=== PATIENT | female | born 1970 | race Caucasian/White ===

== ENCOUNTER 2018-09-15 21:51 | Emergency (ER) | payer MEDICARE, OTHER ==
[~2018-09-15] VITALS: Ht 170.2 cm; Wt 58.1 kg
[2018-09-15 22:38] LABS: BASOPHILS ABSOLUTE AUTO 0.07 K/mm3 (0.00-0.23); BASOPHILS PERCENT AUTO 1 % (0-2); EOSINOPHILS ABSOLUTE AUTO 0.23 K/mm3 (0.00-0.68); EOSINOPHILS PERCENT AUTO 2 % (0-6); Hematocrit 40.1 % (33.0-51.0); Hemoglobin 12.9 g/dL (11.5-16.0); IMMATURE GRAN ABSOLUTE AUTO 0.02 K/mm3 (0.00-0.10); IMMATURE GRAN PERCENT AUTO 0 % (0-1); LYMPHOCYTES ABSOLUTE AUTO 3.62 K/mm3 (0.84-5.20); LYMPHOCYTES PERCENT AUTO 30 % (21-46); MONOCYTES ABSOLUTE AUTO 0.62 K/mm3 (0.16-1.47); MONOCYTES PERCENT AUTO 5 % (4-13); Mean Corpuscular HGB 30.3 pg (26.0-34.0); Mean Corpuscular HGB Conc 32.2 g/dL (31.5-36.5); Mean Corpuscular Volume 94 fL (80-100); Mean Platelet Volume 10.2 fL (9.1-12.4); NEUTROPHILS PERCENT AUTO 62 % (41-73); Platelet Count 310 K/mm3 (150-400); RDW Coefficient Variation 12.4 % (11.7-14.2); RDW Standard Deviation 42.9 fL (35.1-46.3); Red Blood Cell Count 4.26 M/mm3 (3.80-5.20); White Blood Cell Count 12.06 K/mm3 (4.00-11.30)
[2018-09-15 22:44] LABS: Alanine Aminotransfer (ALT/SGP 17 U/L (12-78); Albumin, Blood 3.5 g/dL (3.4-5.0); Albumin/Globulin Ratio 1.2 (0.8-1.8); Alk Phos 98 U/L (50-136); Anion Gap 7 mmol/L (6-16); Aspartate Aminotrans (AST/SGOT 10 U/L (12-37); Bilirubin, Total 0.2 mg/dL (0.1-1.0); Blood Urea Nitrogen 8 mg/dL (8-24); Bun/Creatinine Ratio 9.4 (12.0-20.0); CO2, Blood 31 mmol/L (21-32); Calcium, Blood 9.2 mg/dL (8.5-10.1); Chloride, Blood 107 mmol/L (98-108); Creatinine, Blood 0.86 mg/dL (0.40-1.00); Glomerular Filtration Rate >60 (60-); Glucose, Blood 76 mg/dL (70-99); Potassium, Blood 4.7 mmol/L (3.5-5.5); Sodium, Blood 145 mmol/L (136-145); Total Protein, Blood 6.5 g/dL (6.4-8.2)
[2018-09-15 23:19] LABS: Source, Urine Clean Catch
[2018-09-15 23:30] LABS: Bilirubin, Urine Neg (Neg); Blood, Urine Neg (Neg); Glucose Qualitative, Urine Neg (Neg); Ketones, Urine Neg (Neg); Leukocyte Esterase, Urine 1+ (Neg); Nitrite, Urine Neg (Neg); Protein, Urine Neg (Neg); Urobilinogen, Urine NORM (Normal)
[2018-09-15 23:34] LABS: Appearance, Urine Clear (Clear); Color, Urine Yellow (P-Yellow)
[2018-09-15 23:46] LABS: Bacteria Mod /hpf; Red Blood Cells, Urine 0-2 /hpf (0-2); Squamous Epithelial Cells Mod /hpf (Few)
[2018-09-16] MEDS ORDERED: ZOFRAN (00:04)
[2018-09-16] MEDS ORDERED: IBUP800 (00:05)
[2018-09-16] MEDS ORDERED: NEURONTIN (00:05)
[2018-09-16] MEDS ORDERED: XANAX (00:05)
== END 2018-09-16 02:12 | disposition home or self-care (01) ==
LOC: ER 21:51
PROVIDERS: Emergency Medicine
DX: K59.00 Constipation, unspecified (principal); Z79.899 Other long term (current) drug therapy; F17.210 Nicotine dependence, cigarettes, uncomplicated
CPT/HCPCS: 36415; 74176; 80053; 81001; 83690; 85025; 87086; 96374; 96375; 99284-25; A9270-GY; J1885; J2405; J3010

== ENCOUNTER 2020-05-19 15:31 | Emergency (ER) | payer MEDICARE ==
[~2020-05-19] VITALS: Ht 162.6 cm; Wt 54.4 kg
[~2020-05-19 15:31] MED LIST: IBUP800 PO; NEURONTIN; XANAX; ZOFRAN
[2020-05-19 16:01] LABS: Source, Urine Catheter
[2020-05-19 16:06] LABS: BASOPHILS PERCENT AUTO 1 % (0-2); EOSINOPHILS ABSOLUTE AUTO 0.13 K/mm3 (0.00-0.68); EOSINOPHILS PERCENT AUTO 1 % (0-6); Hemoglobin 14.7 g/dL (11.5-16.0); IMMATURE GRAN ABSOLUTE AUTO 0.13 K/mm3 (0.00-0.10); IMMATURE GRAN PERCENT AUTO 1 % (0-1); LYMPHOCYTES ABSOLUTE AUTO 2.42 K/mm3 (0.84-5.20); LYMPHOCYTES PERCENT AUTO 13 % (21-46); MONOCYTES ABSOLUTE AUTO 0.95 K/mm3 (0.16-1.47); MONOCYTES PERCENT AUTO 5 % (4-13); Mean Corpuscular HGB 29.4 pg (26.0-34.0); Mean Corpuscular HGB Conc 33.4 g/dL (31.5-36.5); Mean Corpuscular Volume 88 fL (80-100); Mean Platelet Volume 9.8 fL (9.1-12.4); NEUTROPHILS ABSOLUTE AUTO 14.36 K/mm3 (1.96-9.15); NEUTROPHILS PERCENT AUTO 79 % (41-73); Platelet Count 287 K/mm3 (150-400); RDW Coefficient Variation 12.2 % (11.7-14.2); RDW Standard Deviation 39.3 fL (35.1-46.3); White Blood Cell Count 18.09 K/mm3 (4.00-11.30)
[2020-05-19 16:06] LABS: Appearance, Urine Clear (Clear); Bilirubin, Urine Neg (Neg); Blood, Urine Neg (Neg); Color, Urine Amber (P-Yellow); Glucose Qualitative, Urine Neg (Neg); Ketones, Urine 2+ (Neg); Leukocyte Esterase, Urine 1+ (Neg); Nitrite, Urine Neg (Neg); Protein, Urine 1+ (Neg); Urobilinogen, Urine NORM (Normal)
[2020-05-19 16:17] LABS: Bacteria Rare /hpf; Red Blood Cells, Urine Rare /hpf (0-2); Squamous Epithelial Cells Not Seen /hpf (Few); White Blood Cells, Urine 0-2 /hpf (0-5)
[2020-05-19] MEDS ORDERED: GABA800 PO (16:17)
[2020-05-19] MEDS ORDERED: ALPRAZOLAM1 M1 PO (16:19)
[2020-05-19 16:23] LABS: Ethanol (Alcohol), Blood, Med <3 mg/dL; Salicylate 2.9 mg/dL (2.8-20.0)
[2020-05-19 16:27] LABS: U Amphetamine Screen Not Detected; U Barbituate Screen Not Detected; U Benzodiazapine Screen DETECTED; U Buprenorphine Screen Not Detected; U Cannabinoids Screen DETECTED; U Cocaine Screen Not Detected; U Methadone Screen Not Detected; U Methamphetamine Screen Not Detected; U Opiates Screen Not Detected; U Oxycodone Screen DETECTED; U Phencyclidine Screen Not Detected; U Propoxyphene Screen Not Detected
[2020-05-19] MEDS ORDERED: OXYC80ER PO (16:28)
[2020-05-19 16:29] LABS: Alanine Aminotransfer (ALT/SGP 18 U/L (12-78); Albumin, Blood 4.3 g/dL (3.4-5.0); Albumin/Globulin Ratio 1.3 (0.8-1.8); Alk Phos 101 U/L (50-136); Anion Gap 9 mmol/L (6-16); Aspartate Aminotrans (AST/SGOT 13 U/L (12-37); Bilirubin, Total 0.3 mg/dL (0.1-1.0); Blood Urea Nitrogen 8 mg/dL (8-24); Bun/Creatinine Ratio 10.9 (12.0-20.0); CO2, Blood 25 mmol/L (21-32); Calcium, Blood 9.8 mg/dL (8.5-10.1); Chloride, Blood 103 mmol/L (98-108); Creatinine, Blood 0.73 mg/dL (0.40-1.00); Globulin, Blood 3.4 g/dL (2.2-4.0); Glomerular Filtration Rate >60 (60-); Glucose, Blood 146 mg/dL (70-99); Potassium, Blood 3.4 mmol/L (3.5-5.5); Sodium, Blood 137 mmol/L (136-145); Total Protein, Blood 7.7 g/dL (6.4-8.2)
[2020-05-19] MEDS ORDERED: OXYC30ER PO (16:30)
[2020-05-19 16:31] LABS: Acetaminophen, Random <2.0 ug/mL (10.0-30.0)
== END 2020-05-19 19:20 | disposition home or self-care (01) ==
LOC: ER 15:31
PROVIDERS: Physician Assistant
DX: R41.82 Altered mental status, unspecified (principal); R11.2 Nausea with vomiting, unspecified; R00.1 Bradycardia, unspecified; F17.210 Nicotine dependence, cigarettes, uncomplicated; Z79.899 Other long term (current) drug therapy; Z79.52 Long term (current) use of systemic steroids
CPT/HCPCS: 36415; 70450; 71045; 80053; 81001; 82947; 85025; 87086; 93005; 93010; 96361-59; 96374-59; 96375-59; 99285-25; G0480; J2310; J2405; J7120; P9612

== ENCOUNTER 2020-06-28 17:08 | Emergency (ER) | payer MEDICARE ==
[~2020-06-28] VITALS: Ht 170.2 cm; Wt 53.1 kg
[~2020-06-28 17:08] MED LIST changes: +ALPRAZOLAM1 M1 PO; +GABA800 PO; +OXYC30ER PO; +OXYC80ER PO
[2020-06-28 17:50] LABS: BASOPHILS ABSOLUTE AUTO 0.08 K/mm3 (0.00-0.23); BASOPHILS PERCENT AUTO 1 % (0-2); EOSINOPHILS ABSOLUTE AUTO 0.18 K/mm3 (0.00-0.68); EOSINOPHILS PERCENT AUTO 2 % (0-6); Hematocrit 46.2 % (33.0-51.0); IMMATURE GRAN ABSOLUTE AUTO 0.02 K/mm3 (0.00-0.10); IMMATURE GRAN PERCENT AUTO 0 % (0-1); LYMPHOCYTES ABSOLUTE AUTO 3.33 K/mm3 (0.84-5.20); LYMPHOCYTES PERCENT AUTO 40 % (21-46); MONOCYTES ABSOLUTE AUTO 0.62 K/mm3 (0.16-1.47); MONOCYTES PERCENT AUTO 7 % (4-13); Mean Corpuscular HGB 29.4 pg (26.0-34.0); Mean Corpuscular HGB Conc 32.5 g/dL (31.5-36.5); Mean Corpuscular Volume 91 fL (80-100); Mean Platelet Volume 9.6 fL (9.1-12.4); NEUTROPHILS ABSOLUTE AUTO 4.12 K/mm3 (1.96-9.15); NEUTROPHILS PERCENT AUTO 49 % (41-73); Platelet Count 322 K/mm3 (150-400); RDW Coefficient Variation 12.3 % (11.7-14.2); RDW Standard Deviation 41.2 fL (35.1-46.3); White Blood Cell Count 8.35 K/mm3 (4.00-11.30)
[2020-06-28 18:09] LABS: Alanine Aminotransfer (ALT/SGP 20 U/L (12-78); Albumin, Blood 4.5 g/dL (3.4-5.0); Albumin/Globulin Ratio 1.2 (0.8-1.8); Alk Phos 111 U/L (50-136); Anion Gap 6 mmol/L (6-16); Aspartate Aminotrans (AST/SGOT 17 U/L (12-37); Bilirubin, Total 0.3 mg/dL (0.1-1.0); Blood Urea Nitrogen 9 mg/dL (8-24); Bun/Creatinine Ratio 10.8 (12.0-20.0); CO2, Blood 27 mmol/L (21-32); Calcium, Blood 9.6 mg/dL (8.5-10.1); Chloride, Blood 105 mmol/L (98-108); Creatinine, Blood 0.83 mg/dL (0.40-1.00); Globulin, Blood 3.6 g/dL (2.2-4.0); Glomerular Filtration Rate >60 (60-); Glucose, Blood 105 mg/dL (70-99); Potassium, Blood 3.8 mmol/L (3.5-5.5); Sodium, Blood 138 mmol/L (136-145); Total Protein, Blood 8.1 g/dL (6.4-8.2)
[2020-06-28 18:48] LABS: Source, Urine Voided
[2020-06-28 18:51] LABS: Appearance, Urine Clear (Clear); Bilirubin, Urine Neg (Neg); Blood, Urine Neg (Neg); Color, Urine Yellow (P-Yellow); Glucose Qualitative, Urine Neg (Neg); Ketones, Urine Neg (Neg); Leukocyte Esterase, Urine Neg (Neg); Nitrite, Urine Neg (Neg); Protein, Urine Neg (Neg); Specific Gravity, Urine 1.005 (1.003-1.022); Urobilinogen, Urine NORM (Normal)
[2020-06-28] MEDS ORDERED: FLUTICASONE PRO16 GM (20:23)
[2020-06-28] MEDS ORDERED: ESTRADIOL1 M1 PO (20:23)
[2020-06-28] MEDS ORDERED: COMBIVENT RESPIM4 G1 INH (20:23)
[2020-06-28] MEDS ORDERED: BUPROPION HCL200 M1 PO (20:23)
== END 2020-06-28 20:54 | disposition home or self-care (01) ==
LOC: ER 17:08
PROVIDERS: Emergency Medicine; Physician Assistant
DX: R10.9 Unspecified abdominal pain (principal); R11.2 Nausea with vomiting, unspecified; E78.00 Pure hypercholesterolemia, unspecified; F17.210 Nicotine dependence, cigarettes, uncomplicated; Z88.5 Allergy status to narcotic agent; Z79.899 Other long term (current) drug therapy; Z87.19 Personal history of other diseases of the digestive system
CPT/HCPCS: 74176; 80053; 81003; 83690; 85025; 93005; 93010; 96374; 96375; 99284-25; J1170; J1885; J2405

== ENCOUNTER 2020-07-01 15:07 | Emergency (ER) | payer MEDICARE ==
[~2020-07-01] VITALS: Ht 167.6 cm; Wt 53.5 kg
[~2020-07-01 15:07] MED LIST changes: +BUPROPION HCL200 M1 PO; +COMBIVENT RESPIM4 G1 INH; +ESTRADIOL1 M1 PO; +FLUTICASONE PRO16 GM
[2020-07-01 16:02] LABS: BASOPHILS ABSOLUTE AUTO 0.08 K/mm3 (0.00-0.23); BASOPHILS PERCENT AUTO 1 % (0-2); EOSINOPHILS ABSOLUTE AUTO 0.09 K/mm3 (0.00-0.68); EOSINOPHILS PERCENT AUTO 1 % (0-6); Hematocrit 41.7 % (33.0-51.0); Hemoglobin 13.8 g/dL (11.5-16.0); IMMATURE GRAN ABSOLUTE AUTO 0.06 K/mm3 (0.00-0.10); IMMATURE GRAN PERCENT AUTO 1 % (0-1); LYMPHOCYTES ABSOLUTE AUTO 1.67 K/mm3 (0.84-5.20); LYMPHOCYTES PERCENT AUTO 14 % (21-46); MONOCYTES ABSOLUTE AUTO 0.46 K/mm3 (0.16-1.47); MONOCYTES PERCENT AUTO 4 % (4-13); Mean Corpuscular HGB 30.1 pg (26.0-34.0); Mean Corpuscular HGB Conc 33.1 g/dL (31.5-36.5); Mean Corpuscular Volume 91 fL (80-100); Mean Platelet Volume 9.7 fL (9.1-12.4); NEUTROPHILS ABSOLUTE AUTO 9.61 K/mm3 (1.96-9.15); NEUTROPHILS PERCENT AUTO 80 % (41-73); NRBC ABSOLUTE 0.02 K/mm3 (0.00-0.02); NRBC Auto 0.2 /100 WBC (0.0-0.2); Platelet Count 288 K/mm3 (150-400); RDW Coefficient Variation 12.4 % (11.7-14.2); RDW Standard Deviation 41.2 fL (35.1-46.3); Red Blood Cell Count 4.58 M/mm3 (3.80-5.20); White Blood Cell Count 11.97 K/mm3 (4.00-11.30)
[2020-07-01 16:41] LABS: Alanine Aminotransfer (ALT/SGP 36 U/L (12-78); Albumin/Globulin Ratio 1.1 (0.8-1.8); Alk Phos 109 U/L (50-136); Anion Gap 5 mmol/L (6-16); Aspartate Aminotrans (AST/SGOT 33 U/L (12-37); Bilirubin, Total 1.4 mg/dL (0.1-1.0); Blood Urea Nitrogen 9 mg/dL (8-24); CO2, Blood 28 mmol/L (21-32); Calcium, Blood 9.1 mg/dL (8.5-10.1); Chloride, Blood 103 mmol/L (98-108); Creatinine, Blood 0.75 mg/dL (0.40-1.00); Ethanol (Alcohol), Blood, Med <3 mg/dL; Globulin, Blood 3.7 g/dL (2.2-4.0); Glomerular Filtration Rate >60 (60-); Glucose, Blood 131 mg/dL (70-99); Potassium, Blood 4.8 mmol/L (3.5-5.5); Sodium, Blood 136 mmol/L (136-145); Total Protein, Blood 7.7 g/dL (6.4-8.2); Troponin I <0.015 ng/mL (0.000-0.040)
[2020-07-01 18:37] LABS: Source, Urine Clean Catch
[2020-07-01 18:47] LABS: Appearance, Urine Clear (Clear); Bilirubin, Urine Neg (Neg); Blood, Urine Neg (Neg); Color, Urine Yellow (P-Yellow); Glucose Qualitative, Urine Neg (Neg); Ketones, Urine 1+ (Neg); Leukocyte Esterase, Urine 1+ (Neg); Nitrite, Urine Neg (Neg); Protein, Urine Neg (Neg); Specific Gravity, Urine 1.015 (1.003-1.022); Urobilinogen, Urine NORM (Normal)
[2020-07-01 19:01] LABS: Bacteria Few /hpf; Red Blood Cells, Urine Rare /hpf (0-2); Squamous Epithelial Cells Mod /hpf (Few); White Blood Cells, Urine 0-2 /hpf (0-5)
[2020-07-01 19:04] LABS: U Amphetamine Screen Not Detected; U Barbituate Screen Not Detected; U Benzodiazapine Screen DETECTED; U Buprenorphine Screen Not Detected; U Cannabinoids Screen DETECTED; U Cocaine Screen Not Detected; U Methadone Screen Not Detected; U Methamphetamine Screen Not Detected; U Opiates Screen Not Detected; U Oxycodone Screen DETECTED; U Phencyclidine Screen Not Detected; U Propoxyphene Screen Not Detected
[2020-07-01] MEDS ORDERED: ONDA4ODT SL (20:57)
== END 2020-07-01 22:15 | disposition home or self-care (01) ==
LOC: ER 15:07
PROVIDERS: Physician Assistant
DX: R11.2 Nausea with vomiting, unspecified (principal); R10.9 Unspecified abdominal pain; R55 Syncope and collapse; F17.210 Nicotine dependence, cigarettes, uncomplicated; Z88.5 Allergy status to narcotic agent; Z79.899 Other long term (current) drug therapy
CPT/HCPCS: 36415; 76705; 80053; 81001; 82140; 83690; 84484; 85025; 87086; 93005; 93010; 99284-25; G0480

== ENCOUNTER → 2021-02-05 | Outpatient (CLI) | payer MEDICARE ==
[~2021-02-05] MED LIST changes: +ONDA4ODT SL
== END | disposition home or self-care (01) ==
LOC: LAB SHORT 07:57
DX: L57.0 Actinic keratosis (principal)
CPT/HCPCS: 88305

== ENCOUNTER 2021-09-18 21:31 | Emergency (ER) | payer MEDICARE, OTHER ==
[~2021-09-18] VITALS: Ht 170.2 cm; Wt 56.7 kg
== END 2021-09-19 02:17 | disposition home or self-care (01) ==
LOC: ER 21:31
DX: M79.89 Other specified soft tissue disorders (principal); F17.210 Nicotine dependence, cigarettes, uncomplicated; E78.00 Pure hypercholesterolemia, unspecified; Z79.899 Other long term (current) drug therapy
CPT/HCPCS: 93971; 99283-25

== ENCOUNTER 2022-12-25 11:39 | Day surgery (SDC) | payer OTHER ==
[~2022-12-25] VITALS: Ht 170.2 cm; Wt 60.8 kg
[2022-12-25] MEDS ORDERED: FLUT1DIS5 INH (12:48)
[2022-12-25] MEDS ORDERED: STIOLTO RESPIMAT4 G1 IH (12:48)
[2022-12-25 14:20] VITALS: BP 95/58
--- NOTE | 2022-12-25 14:27 | NUR ---
12/25/22 1427 Karen Martin LATE ENTRY FOR CHARTING FOR CAREPLAN AND ASSESSMENT. ASSESSMENT WAS PREFORMED IN PRE-OP BEFORE PROCEDURE.
== END 2022-12-25 14:21 | disposition home or self-care (01) ==
LOC: ORSCSDS 11:39
PROVIDERS: Internal Medicine Gastroenterology
PROC: 0DBK8ZX Excision of Ascending Colon, Via Natural or Artificial Opening Endoscopic, Diagnostic (ICD-10-PCS; principal; 2022-12-25 11:30)
PROC: 0DB68ZX Excision of Stomach, Via Natural or Artificial Opening Endoscopic, Diagnostic (ICD-10-PCS; principal; 2022-12-25 11:30)
DX: R10.13 Epigastric pain (principal); Z12.11 Encounter for screening for malignant neoplasm of colon; Z80.0 Family history of malignant neoplasm of digestive organs; D12.2 Benign neoplasm of ascending colon; K57.30 Diverticulosis of large intestine without perforation or abscess without bleeding; Z99.81 Dependence on supplemental oxygen; K31.9 Disease of stomach and duodenum, unspecified; F41.9 Anxiety disorder, unspecified; R06.02 Shortness of breath; J44.9 Chronic obstructive pulmonary disease, unspecified; E78.5 Hyperlipidemia, unspecified; F32.A Depression, unspecified; Z86.010 Personal history of colon polyps; F17.210 Nicotine dependence, cigarettes, uncomplicated; Z79.899 Other long term (current) drug therapy
CPT/HCPCS: 88305; 88342; J2704; J7120

== ENCOUNTER 2023-03-03 17:16 | Inpatient (IN) | payer OTHER ==
[~2023-03-03] VITALS: Ht 170.2 cm; Wt 60.2 kg
[~2023-03-03 17:16] MED LIST changes: -ALBU90OI INH; -BUPR100ER PO; -HYDRA25 PO; -ONDA4 PO; -OXYC5 PO; -Ondansetron Odt8 MG MM; -ZANAFLEX413 PO
[2023-03-03 20:39] LABS: Influenza A, PCR NEGATIVE (NEGATIVE); Influenza B, PCR NEGATIVE (NEGATIVE); Resp Syncytial Virus, PCR NEGATIVE (NEGATIVE); SARS-Cov-2 (COVID-19) PCR, MMC NEGATIVE (NEGATIVE)
[2023-03-04] MEDS ORDERED: ZANAFLEX413 PO (00:28)
[2023-03-04] MEDS ORDERED: BUPR100ER PO (00:28)
[2023-03-04 01:18] VITALS: BP 108/72
[2023-03-04] MEDS ORDERED: ONDA4 PO (01:19)
--- NOTE | 2023-03-04 02:40 | NUR ---
ADMIT ADMIT AT APPROX 0115 FOR RESPIRATORY FAILURE R/T BILAT PNEUMONIA. PT A+O X4 AND INDEP. ON 4L VIA NC SATTING AT 95%. PT IS SOB WITH EXERTION AND DOES SPEAK IN BROKEN SENTENCES AND BECOMES TACHYPNIC. LUNG SOUNDS ARE COARSE T/O. PT REPORTS A NONPRODUCTIVE COUGH. RT FOR NEB TXS PRN. VSS. ORIENTED TO ROOM AND CALL LIGHT.
--- NOTE | 2023-03-04 05:52 | NUR ---
PT REPORTED SOB. PT 89% ON 4L O2 VIA NC. THIS RN INCREASED TO 5L AND CALLED RT FOR BREATHING TX. RT INCREASED PT TO 6L VIA NC. CONT TO MONITOR O2 SATS. BREATHING TX IN PROGRESS.
[2023-03-04 08:42] VITALS: BP 106/67
[2023-03-04 10:08] LABS: Magnesium, Blood 2.6 mg/dL (1.6-2.4); Phosphorus, Blood 3.5 mg/dL (2.5-4.9)
[2023-03-04] MEDS ORDERED: OXYC80ER PO (10:39)
[2023-03-04] MEDS ORDERED: OXYC5 PO (10:40)
[2023-03-04] MEDS ORDERED: ALBU90OI INH (10:51)
[2023-03-04] MEDS ORDERED: Ondansetron Odt8 MG MM (10:56)
[2023-03-04 15:44] VITALS: BP 112/67
[2023-03-04] MEDS ORDERED: HYDRA25 PO (17:33)
--- NOTE | 2023-03-04 19:51 | NUR ---
SHIFT SUMMARY PT INDEPENDENT IN ROOM. SOB WITH ANY ACTIVITY. REPORTED SHE TOOK PAIN MEDS REGULARLY AT HOME THIS MORNING AND VERIFIED WITH PHARMACY MED REC. RECEIVED ORDERS FOR HOME PAIN MED REGIMAN TO CONTINUE. TOOK A SHOWER AFTER LUNCH AND TOLERATED WELL. REPORTED COUGH BEGINNING TO CAUSE THROAT TO BECOM RAW AND IRRITATED AND ASKING FOR NUMBING TREATMENT. FAMILIAR WITH HOSPITAL ROUTINE. END OF SHIFT O2 AT 5L/M.
[2023-03-04 20:12] VITALS: BP 107/58
[2023-03-05 03:45] LABS: Adenovirus Not Detected (NOT DETECT); Bordetella pertussis Not Detected (NOT DETECT); Chlamydophila pneumoniae Not Detected (NOT DETECT); Coronavirus 229E Not Detected (NOT DETECT); Coronavirus HKU1 Not Detected (NOT DETECT); Coronavirus NL63 Not Detected (NOT DETECT); Coronavirus OC43 Not Detected (NOT DETECT); Human Metapneumovirus Not Detected (NOT DETECT); Human Rhinovirus/Enterovirus Detected (NOT DETECT); Influenza A/2009-H1 Not Detected (NOT DETECT); Influenza A/H1 Not Detected (NOT DETECT); Influenza A/H3 Not Detected (NOT DETECT); Influenza B Not Detected (NOT DETECT); Mycoplasma pneumoniae Not Detected (NOT DETECT); Parainfluenza Virus 1 Not Detected (NOT DETECT); Parainfluenza Virus 2 Not Detected (NOT DETECT); Parainfluenza Virus 3 Not Detected (NOT DETECT); Parainfluenza Virus 4 Not Detected (NOT DETECT); Respiratory Syncytial Virus Not Detected (NOT DETECT); SARS-Cov-2 (COVID-19), BioFire Not Detected (NOT DETECT)
--- NOTE | 2023-03-05 04:22 | NUR ---
SHIFT SUMMARY 52 YR F ADMITTED ON 03/03/23 FOR ACUTE ON CHRONIC RESPIRATORY FAILURE WITH HYPOXIA. DNR. NO ACUTE CHANGES THIS SHIFT. PT C/O WIDE SPREAD PAIN AND IS BEING GIVEN PAIN MEDS PER EMAR. RESPIRATORY PANEL DONE AND PT IS POSITIVE FOR RHINOVIRUS SO SHE WILL BE PUT IN DROPLET PRECAUTIONS. SHE HAS BEEN UP IN HER CHAIR WATCHING TV FOR MOST OF THIS SHIFT. CLOROSEPTIC NUMBING THROAT SPRAY WAS ORDERED AND IS HELPFUL IN MANAGING THROAT PAIN. PT IS PLEASANT AND COOPERATIVE WITH CARE.
[2023-03-05 04:56] VITALS: BP 110/77
[2023-03-05 07:27] VITALS: BP 131/83
[2023-03-05 07:33] LABS: BASOPHILS ABSOLUTE AUTO 0.02 K/mm3 (0.00-0.23); BASOPHILS PERCENT AUTO 0 % (0-2); EOSINOPHILS PERCENT AUTO 0 % (0-6); Hematocrit 34.6 % (33.0-51.0); Hemoglobin 11.3 g/dL (11.5-16.0); IMMATURE GRAN ABSOLUTE AUTO 0.07 K/mm3 (0.00-0.10); IMMATURE GRAN PERCENT AUTO 0 % (0-1); LYMPHOCYTES ABSOLUTE AUTO 1.37 K/mm3 (0.84-5.20); LYMPHOCYTES PERCENT AUTO 7 % (21-46); MONOCYTES ABSOLUTE AUTO 0.92 K/mm3 (0.16-1.47); MONOCYTES PERCENT AUTO 5 % (4-13); Mean Corpuscular HGB 29.6 pg (26.0-34.0); Mean Corpuscular HGB Conc 32.7 g/dL (31.5-36.5); Mean Corpuscular Volume 91 fL (80-100); Mean Platelet Volume 9.5 fL (9.1-12.4); NEUTROPHILS ABSOLUTE AUTO 16.52 K/mm3 (1.96-9.15); NEUTROPHILS PERCENT AUTO 87 % (41-73); Platelet Count 347 K/mm3 (150-400); RDW Coefficient Variation 12.4 % (11.7-14.2); RDW Standard Deviation 40.9 fL (35.1-46.3); Red Blood Cell Count 3.82 M/mm3 (3.80-5.20)
[2023-03-05 08:01] LABS: Albumin, Blood 2.8 g/dL (3.4-5.0); Albumin/Globulin Ratio 0.7 (0.8-1.8); Bilirubin, Total 0.2 mg/dL (0.1-1.0); Bun/Creatinine Ratio 19.7 (12.0-20.0); Calcium, Blood 8.9 mg/dL (8.5-10.1); Creatinine, Blood 0.66 mg/dL (0.40-1.00); Globulin, Blood 3.8 g/dL (2.2-4.0); Total Protein, Blood 6.6 g/dL (6.4-8.2)
[2023-03-05 15:56] VITALS: BP 135/80
--- NOTE | 2023-03-05 18:40 | NUR ---
SHIFT SUMMARY PT INDEPENDENT IN ROOM. SOB WITH ACTIVITY. O2 CONTINUES TO RANGE FROM 4-7 LITERS. STARTED TO FEEL DIZZY AND INCREASED SOB WITH FLOATERS IN HER EYES LATE THIS AFTERNOON. SELF RESOLVED BUT REPORTED FEELING NOT WELL FOR REMAINDER OF SHIFT. OBTAINED ORDER FOR TELE AND EKG.
[2023-03-05 20:21] VITALS: BP 132/72
[2023-03-06 04:01] VITALS: BP 154/86
--- NOTE | 2023-03-06 05:38 | NUR ---
SHIFT SUMMARY 52 YR F ADMITTED ON 03/03/23 FOR COPD/INTERSTITIAL LUNG DISEASE. FULL CODE. PT DID NOT FEEL WELL AT BEGINNING OF SHIFT AND WAS C/O HEADACHE. TYLENOL AND NORMAL PAIN MEDS GIVEN AND WITHIN AN HOUR OR TWO PT WAS FEELING MUCH BETTER. SHE DID NOT SLEEP MUCH OVERNIGHT BUT RATHER SAT UP IN HER CHAIR WATCHING HER IPAD. SHE STATED SHE WAS NOT HAPPY WITH THE BIOLOGICAL PHOTOGRAPHER THIS SHIFT AND ASKED TO SPEAK WITH A CHARGE NURSE ABOUT IT. PT HAD A CONVERSATION WITH THE CHARGE NURSE AND THIS NURSE WAS NOT IN THE ROOM WHEN IT TOOK PLACE.
[2023-03-06 06:54] LABS: BASOPHILS ABSOLUTE AUTO 0.02 K/mm3 (0.00-0.23); BASOPHILS PERCENT AUTO 0 % (0-2); EOSINOPHILS PERCENT AUTO 0 % (0-6); Hematocrit 35.6 % (33.0-51.0); Hemoglobin 11.5 g/dL (11.5-16.0); IMMATURE GRAN ABSOLUTE AUTO 0.14 K/mm3 (0.00-0.10); IMMATURE GRAN PERCENT AUTO 1 % (0-1); LYMPHOCYTES ABSOLUTE AUTO 1.06 K/mm3 (0.84-5.20); LYMPHOCYTES PERCENT AUTO 9 % (21-46); MONOCYTES ABSOLUTE AUTO 0.64 K/mm3 (0.16-1.47); MONOCYTES PERCENT AUTO 5 % (4-13); Mean Corpuscular HGB 29.4 pg (26.0-34.0); Mean Corpuscular HGB Conc 32.3 g/dL (31.5-36.5); Mean Corpuscular Volume 91 fL (80-100); Mean Platelet Volume 9.4 fL (9.1-12.4); NEUTROPHILS ABSOLUTE AUTO 10.54 K/mm3 (1.96-9.15); NEUTROPHILS PERCENT AUTO 85 % (41-73); Platelet Count 386 K/mm3 (150-400); RDW Coefficient Variation 12.5 % (11.7-14.2); RDW Standard Deviation 41.5 fL (35.1-46.3); Red Blood Cell Count 3.91 M/mm3 (3.80-5.20)
[2023-03-06 07:09] VITALS: BP 127/70
[2023-03-06 07:27] LABS: Bun/Creatinine Ratio 25.8 (12.0-20.0); Creatinine, Blood 0.81 mg/dL (0.40-1.00)
[2023-03-06 15:34] VITALS: BP 147/132
[2023-03-06 16:21] VITALS: BP 127/61
--- NOTE | 2023-03-06 19:27 | NUR ---
SHIFT SUMMARY PT INDEPENDENT IN ROOM. RESP STATUS MUCH IMPROVED FROM LAST COUPLE OF DAYS. TOLERATING O2 AT 2L/M BY NC AT THIS TIME. NO S/S OF RESP DISTRESS AT THAT RATE. SHOWER TAKEN. CONTINUES WITH COUGH.
[2023-03-06 19:39] VITALS: BP 122/74
[2023-03-07 03:20] VITALS: BP 166/93
--- NOTE | 2023-03-07 05:23 | NUR ---
SHIFT SUMMARY PATIENT A/OX4, SITTING UP IN CHAIR BESIDE BED WATCHING HER iPAD, APPEARS IN NO ACUTE DISTRESS, STATED PAIN LEVEL OF 10/10 TO; "EVERYWHERE, NECK, MY HIP, ITS EVERYWHERE." PAIN MANAGED PER EMAR. DENIES SOB/DIFFICULTY BREATHING. CONTINUES TO HAVE NON-PRODUCTIVE COUGH, PATIENT DECLINED TO GIVE SPUTUM SAMPLE. SpO2 IN MID TO UPPER 90s ON 2-3L O2. NO ACUTE CHANGES NOTED OVERNIGHT. BED LOCKED IN LOWEST POSITION, CALL LIGHT WITHIN REACH.
[2023-03-07 05:40] LABS: BASOPHILS ABSOLUTE AUTO 0.02 K/mm3 (0.00-0.23); BASOPHILS PERCENT AUTO 0 % (0-2); EOSINOPHILS ABSOLUTE AUTO 0.01 K/mm3 (0.00-0.68); EOSINOPHILS PERCENT AUTO 0 % (0-6); Hematocrit 37.4 % (33.0-51.0); IMMATURE GRAN ABSOLUTE AUTO 0.17 K/mm3 (0.00-0.10); IMMATURE GRAN PERCENT AUTO 1 % (0-1); LYMPHOCYTES ABSOLUTE AUTO 1.52 K/mm3 (0.84-5.20); LYMPHOCYTES PERCENT AUTO 11 % (21-46); MONOCYTES ABSOLUTE AUTO 0.57 K/mm3 (0.16-1.47); MONOCYTES PERCENT AUTO 4 % (4-13); Mean Corpuscular HGB 29.4 pg (26.0-34.0); Mean Corpuscular HGB Conc 32.1 g/dL (31.5-36.5); Mean Corpuscular Volume 92 fL (80-100); Mean Platelet Volume 9.6 fL (9.1-12.4); NEUTROPHILS ABSOLUTE AUTO 11.38 K/mm3 (1.96-9.15); NEUTROPHILS PERCENT AUTO 83 % (41-73); Platelet Count 421 K/mm3 (150-400); RDW Coefficient Variation 12.5 % (11.7-14.2); RDW Standard Deviation 41.6 fL (35.1-46.3); Red Blood Cell Count 4.08 M/mm3 (3.80-5.20); White Blood Cell Count 13.67 K/mm3 (4.00-11.30)
[2023-03-07 06:18] LABS: Bun/Creatinine Ratio 27.7 (12.0-20.0); Creatinine, Blood 0.72 mg/dL (0.40-1.00)
[2023-03-07 06:26] VITALS: BP 151/81
--- NOTE | 2023-03-07 07:55 | NUR ---
RECEIVED CALL FROM [facility] THAT PT'S HR WAS 38 AT 0727. PT CURRENTLY WORKING WITH RT, AWAKE, ALERT AND RESPONDING APPROPRIATELY.
[2023-03-07 08:26] VITALS: BP 168/87
[2023-03-07] MEDS ORDERED: COMBIVENT RESPIM4 G1 INH (12:20)
[2023-03-07] MEDS ORDERED: PRED20 PO (12:21)
[2023-03-07] MEDS ORDERED: VISBIOME 112.51 EACH PO (12:22)
--- NOTE | 2023-03-07 13:00 | NUR ---
DISCHARGE INSTRUCTIONS DISCUSSED WITH PT AND PRINTED COPY GIVEN. IV REMOVED. ALL PERSONAL BELONGINGS SENT HOME WITH PT. PT STATES THAT SHE DROVE HERSELF HERE AND IS DRIVING HERSELF HOME, HER CAR IS IN THE PARKING LOT. PT HAS PORTABLE O2 WITH HER, MAINTAINING SATS >90% ORA. PT TRANSPORTED OUT OF BUILDING VIA WHEELCHAIR BY BOILER ASSISTANT OPERATOR.
== END 2023-03-07 13:08 | disposition home or self-care (01) | DRG 193 ==
LOC: ER 17:16 → ERHOLD 19:56 → MEDS 19:56 → ENPENDDIS 03-07 11:08 → MEDS 03-07 13:08
PROVIDERS: Emergency Medicine; Family Medicine; ADMIT Internal Medicine
DX: J18.9 Pneumonia, unspecified organism (principal); J96.21 Acute and chronic respiratory failure with hypoxia; F11.20 Opioid dependence, uncomplicated; J44.0 Chronic obstructive pulmonary disease with (acute) lower respiratory infection; J44.1 Chronic obstructive pulmonary disease with (acute) exacerbation; F41.9 Anxiety disorder, unspecified; Z66 Do not resuscitate; F17.210 Nicotine dependence, cigarettes, uncomplicated; Z11.52 Encounter for screening for COVID-19; F12.90 Cannabis use, unspecified, uncomplicated; E78.00 Pure hypercholesterolemia, unspecified; G89.4 Chronic pain syndrome; M41.9 Scoliosis, unspecified; Z90.49 Acquired absence of other specified parts of digestive tract; Z98.890 Other specified postprocedural states; Z87.19 Personal history of other diseases of the digestive system; Z86.79 Personal history of other diseases of the circulatory system; Z90.710 Acquired absence of both cervix and uterus; Z90.722 Acquired absence of ovaries, bilateral; Z88.5 Allergy status to narcotic agent; Z79.899 Other long term (current) drug therapy; Z79.51 Long term (current) use of inhaled steroids; Z71.6 Tobacco abuse counseling
CPT/HCPCS: 0202U; 0241U; 36415; 36416; 71045; 71250; 80048; 80053; 83605; 83735; 83880; 84100; 84145; 84484; 85025; 87040; 93005; 93010; 93306; 94640; 94664; 94760; 96374; 96375; 99285-25; A9270; C9113; J0456; J0696; J1650; J2930; J7050; J7512

== ENCOUNTER → 2023-03-03 | Outpatient (CLI) | payer OTHER ==
[~2023-03-03] MED LIST changes: +ALBU90OI INH; +BUPR100ER PO; +FLUT1DIS5 INH; +HYDRA25 PO; +ONDA4 PO; +OXYC5 PO; +Ondansetron Odt8 MG MM; +STIOLTO RESPIMAT4 G1 IH; +ZANAFLEX413 PO
[2023-03-03 15:45] LABS: BASOPHILS ABSOLUTE AUTO 0.03 K/mm3 (0.00-0.23); BASOPHILS PERCENT AUTO 0 % (0-2); EOSINOPHILS ABSOLUTE AUTO 0.25 K/mm3 (0.00-0.68); EOSINOPHILS PERCENT AUTO 2 % (0-6); Hematocrit 35.3 % (33.0-51.0); Hemoglobin 11.8 g/dL (11.5-16.0); IMMATURE GRAN ABSOLUTE AUTO 0.05 K/mm3 (0.00-0.10); IMMATURE GRAN PERCENT AUTO 0 % (0-1); LYMPHOCYTES ABSOLUTE AUTO 2.39 K/mm3 (0.84-5.20); LYMPHOCYTES PERCENT AUTO 21 % (21-46); MONOCYTES ABSOLUTE AUTO 0.53 K/mm3 (0.16-1.47); MONOCYTES PERCENT AUTO 5 % (4-13); Mean Corpuscular HGB 29.9 pg (26.0-34.0); Mean Corpuscular HGB Conc 33.4 g/dL (31.5-36.5); Mean Corpuscular Volume 90 fL (80-100); Mean Platelet Volume 9.1 fL (9.1-12.4); NEUTROPHILS ABSOLUTE AUTO 8.34 K/mm3 (1.96-9.15); NEUTROPHILS PERCENT AUTO 72 % (41-73); Platelet Count 307 K/mm3 (150-400); RDW Coefficient Variation 12.6 % (11.7-14.2); RDW Standard Deviation 41.4 fL (35.1-46.3); Red Blood Cell Count 3.94 M/mm3 (3.80-5.20); White Blood Cell Count 11.59 K/mm3 (4.00-11.30)
[2023-03-03 15:57] LABS: Albumin, Blood 2.8 g/dL (3.4-5.0); Albumin/Globulin Ratio 0.7 (0.8-1.8); Bilirubin, Total 0.3 mg/dL (0.1-1.0); Bun/Creatinine Ratio 12.5 (12.0-20.0); Calcium, Blood 9.1 mg/dL (8.5-10.1); Creatinine, Blood 0.88 mg/dL (0.40-1.00); Globulin, Blood 3.8 g/dL (2.2-4.0); Total Protein, Blood 6.6 g/dL (6.4-8.2)
== END ==
LOC: LAB SHORT 15:40 → LAB 15:40
PROVIDERS: Family Medicine
DX: R09.02 Hypoxemia (principal)
CPT/HCPCS: 80053; 85025

== ENCOUNTER 2023-04-01 16:05 | Emergency (ER) | payer OTHER ==
[~2023-04-01] VITALS: Ht 170.2 cm; Wt 59.0 kg
[~2023-04-01 16:05] MED LIST changes: +ALBU90OI INH; +BUPR100ER PO; +HYDRA25 PO; +ONDA4 PO; +OXYC5 PO; +Ondansetron Odt8 MG MM; +PRED20 PO; +VISBIOME 112.51 EACH PO; +ZANAFLEX413 PO
[2023-04-01 16:56] LABS: BASOPHILS ABSOLUTE AUTO 0.05 K/mm3 (0.00-0.23); BASOPHILS PERCENT AUTO 1 % (0-2); EOSINOPHILS ABSOLUTE AUTO 0.29 K/mm3 (0.00-0.68); EOSINOPHILS PERCENT AUTO 3 % (0-6); Hematocrit 39.4 % (33.0-51.0); Hemoglobin 12.7 g/dL (11.5-16.0); IMMATURE GRAN ABSOLUTE AUTO 0.02 K/mm3 (0.00-0.10); IMMATURE GRAN PERCENT AUTO 0 % (0-1); LYMPHOCYTES ABSOLUTE AUTO 2.87 K/mm3 (0.84-5.20); LYMPHOCYTES PERCENT AUTO 27 % (21-46); MONOCYTES ABSOLUTE AUTO 0.67 K/mm3 (0.16-1.47); MONOCYTES PERCENT AUTO 6 % (4-13); Mean Corpuscular HGB 29.7 pg (26.0-34.0); Mean Corpuscular HGB Conc 32.2 g/dL (31.5-36.5); Mean Corpuscular Volume 92 fL (80-100); Mean Platelet Volume 9.2 fL (9.1-12.4); NEUTROPHILS ABSOLUTE AUTO 6.63 K/mm3 (1.96-9.15); NEUTROPHILS PERCENT AUTO 63 % (41-73); Platelet Count 296 K/mm3 (150-400); RDW Coefficient Variation 13.5 % (11.7-14.2); RDW Standard Deviation 45.8 fL (35.1-46.3); Red Blood Cell Count 4.27 M/mm3 (3.80-5.20); White Blood Cell Count 10.53 K/mm3 (4.00-11.30)
[2023-04-01 17:22] LABS: Albumin, Blood 3.6 g/dL (3.4-5.0); Albumin/Globulin Ratio 1.1 (0.8-1.8); Bilirubin, Total 0.2 mg/dL (0.1-1.0); Bun/Creatinine Ratio 11.1 (12.0-20.0); Calcium, Blood 8.8 mg/dL (8.5-10.1); Creatinine, Blood 0.9 mg/dL (0.40-1.00); Globulin, Blood 3.3 g/dL (2.2-4.0); Potassium, Blood 4.3 mmol/L (3.5-5.5); Total Protein, Blood 6.9 g/dL (6.4-8.2)
[2023-04-01 18:14] VITALS: BP 188/52
[2023-04-01] MEDS ORDERED: PRED20 PO (20:24)
[2023-04-01] MEDS ORDERED: DOXY100 PO (20:24)
== END 2023-04-01 20:43 | disposition home or self-care (01) ==
LOC: ER 16:05
PROVIDERS: Emergency Medicine
DX: J18.9 Pneumonia, unspecified organism (principal); J44.1 Chronic obstructive pulmonary disease with (acute) exacerbation; F17.210 Nicotine dependence, cigarettes, uncomplicated; I51.89 Other ill-defined heart diseases; Z88.5 Allergy status to narcotic agent; Z79.899 Other long term (current) drug therapy
CPT/HCPCS: 80053; 85025; 99285-25; A9270; J7512

== ENCOUNTER 2023-08-05 17:33 | Emergency (ER) | payer OTHER ==
[~2023-08-05] VITALS: Ht 167.6 cm; Wt 56.7 kg
[~2023-08-05 17:33] MED LIST changes: +DOXY100 PO
[2023-08-05 17:38] VITALS: BP 174/82
== END 2023-08-05 19:49 | disposition left against medical advice (07) ==
LOC: ER 17:33
DX: M54.50 Low back pain, unspecified (principal); G89.29 Other chronic pain; R32 Unspecified urinary incontinence; M25.561 Pain in right knee; M41.9 Scoliosis, unspecified; F17.210 Nicotine dependence, cigarettes, uncomplicated; E78.00 Pure hypercholesterolemia, unspecified; I50.30 Unspecified diastolic (congestive) heart failure; Z79.51 Long term (current) use of inhaled steroids; Z79.52 Long term (current) use of systemic steroids; Z79.899 Other long term (current) drug therapy; Z88.5 Allergy status to narcotic agent
CPT/HCPCS: 99283-25

== ENCOUNTER 2024-08-09 11:13 | Day surgery (SDC) | payer OTHER ==
[~2024-08-09] VITALS: Ht 170.2 cm; Wt 63.9 kg
[~2024-08-09 11:13] MED LIST changes: +Lactated Ringer's 1,000 ML IV ONE; +Lidocaine HCl 2% 10 ML SDA ONE
[2024-08-09] MEDS ORDERED: Lactated Ringer's 1,000 ML IV ONE (12:20)
[2024-08-09] MEDS ORDERED: CeFAZolin Sodium 2,000 MG VIAL ONE (12:21)
[2024-08-09] MEDS ORDERED: Metoclopramide HCl 5MG / ML 2ML Vial ONE (12:21)
[2024-08-09] MEDS ORDERED: Citric Acid/Sodium Citrate 30 ML BTL ONE (12:21)
[2024-08-09] MEDS ORDERED: TIZANIDINE HCL6 MG PO (12:29)
[2024-08-09] MEDS ORDERED: IBU800 M1 (12:29)
[2024-08-09] MEDS ORDERED: IPRAT-ALBUT 0.5-3 ML (12:30)
[2024-08-09] MEDS ORDERED: RIZATRIPTAN1014 PO (12:30)
--- NOTE | 2024-08-09 12:44 | NUR ---
08/09/24 1244 Newman LakeShira paz 1241:METOCLOPRAMIDE IV INJECTION STARTED. PER DR UNGER GIVE OVER 15 MINUTES. VERIFIED ALLERGIES. PATIENT IN AGREEMENT WITH PLAN.
[2024-08-09] MEDS ORDERED: propofoL 20 ML IV ONE (12:52)
[2024-08-09] MEDS ORDERED: FentaNYL Citrate 50 MCG/ML 2 ML Injection ONE (12:53)
[2024-08-09] MEDS ORDERED: Midazolam HCl 1MG / ML 2ML Vial ONE (12:53)
[2024-08-09] MEDS ORDERED: Bupivacaine 0.5% HCl 5 MG/ML 30MLVIAL ONE (12:54)
[2024-08-09] MEDS ORDERED: Ipratropium/Albuterol SulF 2.5-0.5MG/3 ML Amp ONE (13:17)
[2024-08-09] MEDS ORDERED: ePHEDrine Sulfate 50 MG/ML 1ML Injection ONE (13:50)
[2024-08-09] MEDS ORDERED: Glycopyrrolate 0.2 MG/ML 5ML VIAL ONE (13:51)
[2024-08-09 15:09] VITALS: BP 151/64
--- NOTE | 2024-08-09 15:51 | NUR ---
08/09/24 1558 Ny Knowles LATE ENTRY. PRIOR TO LEAVING PACU FOR SDU, PATIENT WAS TRYING TO LOCATE HER LEFT ARM WHICH WAS UNDER THE BLANKETS. RN RUBY MCKEON, LIFTED PT'S LEFT ARM FROM UNDER THE BLANKET ONTO PATIENT'S CHEST AND PATIENT LIFTED HER ARM WHICH WAS NUMB AND LIMP FROM BLOCK AND ARM HIT PATIENT IN THE NOSE. PT C/O DISCOMFORT MOMENTARILY. PT HAD OXYGEN MASK ON. NOSE WAS ASSESSED AND THERE WERE NO MARKINGS, NO REDNESS, NO SIGNS OF INJURY. PT WAS OFFERED ICE PACK AND SHE DECLINED.
--- NOTE | 2024-08-09 15:52 | NUR ---
08/09/24 Ny Chairez PRIOR TO DISCHARGE PATIENT'S NOSE ASSESSED AGAIN AND AGAIN NO SIGNS OF INJURY, NO REDNESS. PATIENT WITH NO FURTHER COMPLAINTS OF PAIN IN NOSE.
== END 2024-08-09 15:40 | disposition home or self-care (01) ==
LOC: ORSCSDS 11:13
PROVIDERS: Orthopaedic Surgery
PROC: 0RQT0ZZ Repair Left Carpometacarpal Joint, Open Approach (ICD-10-PCS; principal; 2024-08-09 12:45)
PROC: 0LN60ZZ Release Left Lower Arm and Wrist Tendon, Open Approach (ICD-10-PCS; principal; 2024-08-09 12:45)
DX: M18.12 Unilateral primary osteoarthritis of first carpometacarpal joint, left hand (principal); M65.4 Radial styloid tenosynovitis [de Quervain]; J44.9 Chronic obstructive pulmonary disease, unspecified; F17.210 Nicotine dependence, cigarettes, uncomplicated; K21.9 Gastro-esophageal reflux disease without esophagitis; F41.9 Anxiety disorder, unspecified; F32.A Depression, unspecified; Z79.899 Other long term (current) drug therapy; I50.9 Heart failure, unspecified; Z99.81 Dependence on supplemental oxygen
CPT/HCPCS: A9270; C1713; J0690; J2003; J2250; J2704; J2765; J3010; J7120

== ENCOUNTER 2024-11-02 14:15 | Emergency (ER) | payer OTHER ==
[~2024-11-02] VITALS: Ht 157.5 cm; Wt 63.5 kg
[~2024-11-02 14:15] MED LIST changes: +IBU800 M1; +IPRAT-ALBUT 0.5-3 ML; -Lactated Ringer's 1,000 ML IV ONE; -Lidocaine HCl 2% 10 ML SDA ONE; +RIZATRIPTAN1014 PO; +TIZANIDINE HCL6 MG PO
[2024-11-02 15:26] LABS: BASOPHILS ABSOLUTE AUTO 0.10 K/mm3 (0.00-0.23); BASOPHILS PERCENT AUTO 1 % (0-2); EOSINOPHILS ABSOLUTE AUTO 0.24 K/mm3 (0.00-0.68); EOSINOPHILS PERCENT AUTO 2 % (0-6); Hematocrit 37.5 % (33.0-51.0); Hemoglobin 12.5 g/dL (11.5-16.0); IMMATURE GRAN ABSOLUTE AUTO 0.04 K/mm3 (0.00-0.10); IMMATURE GRAN PERCENT AUTO 0 % (0-1); LYMPHOCYTES ABSOLUTE AUTO 1.81 K/mm3 (0.84-5.20); LYMPHOCYTES PERCENT AUTO 13 % (21-46); MONOCYTES ABSOLUTE AUTO 0.70 K/mm3 (0.16-1.47); MONOCYTES PERCENT AUTO 5 % (4-13); Mean Corpuscular HGB Conc 33.3 g/dL (31.5-36.5); Mean Corpuscular Volume 90 fL (80-100); NEUTROPHILS ABSOLUTE AUTO 10.67 K/mm3 (1.96-9.15); NEUTROPHILS PERCENT AUTO 79 % (41-73); NRBC ABSOLUTE 0.00 K/mm3 (0.00-0.02); NRBC Auto 0.0 /100 WBC (0.0-0.2); RDW Coefficient Variation 13.3 % (11.7-14.2); RDW Standard Deviation 43.7 fL (35.1-46.3)
[2024-11-02 15:52] LABS: Platelet Count 248 K/mm3 (150-400)
[2024-11-02 16:05] LABS: Alanine Aminotransfer (ALT/SGP 28.0 U/L (12-78); Albumin, Blood 3.5 g/dL (3.4-5.0); Albumin/Globulin Ratio 1.0 (0.8-1.8); Anion Gap 7.0 mmol/L (3-11); Aspartate Aminotrans (AST/SGOT 21.0 U/L (12-37); Bilirubin, Total 0.2 mg/dL (0.1-1.0); Blood Urea Nitrogen 8.0 mg/dL (8-24); CO2, Blood 28.0 mmol/L (21-32); Calcium, Blood 9.1 mg/dL (8.5-10.1); Chloride, Blood 104.0 mmol/L (98-108); Creatinine, Blood 0.87 mg/dL (0.40-1.00); Globulin, Blood 3.5 g/dL (2.2-4.0); Glucose, Blood 98.0 mg/dL (70-99); Potassium, Blood 4.3 mmol/L (3.5-5.5); Sodium, Blood 135.0 mmol/L (136-145); Total Protein, Blood 7.0 g/dL (6.4-8.2)
[2024-11-02 16:34] LABS: Source, Urine Clean Catch
[2024-11-02 16:52] LABS: Bilirubin, Urine Neg (Neg); Glucose Qualitative, Urine Neg (Neg); Ketones, Urine Neg (Neg); Leukocyte Esterase, Urine Neg (Neg); Protein, Urine Neg (Neg); Specific Gravity, Urine 1.005 (1.003-1.022); Urobilinogen, Urine NORM (Normal)
[2024-11-02 17:06] LABS: Color, Urine Pale Yellow (P-Yellow)
[2024-11-02 17:23] LABS: U Amphetamine Screen Not Detected; U Barbituate Screen Not Detected; U Benzodiazapine Screen DETECTED; U Buprenorphine Screen Not Detected; U Cannabinoids Screen Not Detected; U Cocaine Screen Not Detected; U Methadone Screen Not Detected; U Methamphetamine Screen Not Detected; U Opiates Screen Not Detected; U Oxycodone Screen DETECTED; U Phencyclidine Screen Not Detected
[2024-11-02 18:00] VITALS: BP 141/84
== END 2024-11-02 18:14 | disposition home or self-care (01) ==
LOC: ER 14:15
PROVIDERS: Emergency Medicine; Physician Assistant
DX: R40.4 Transient alteration of awareness (principal); R03.0 Elevated blood-pressure reading, without diagnosis of hypertension; E78.00 Pure hypercholesterolemia, unspecified; M41.9 Scoliosis, unspecified; F17.210 Nicotine dependence, cigarettes, uncomplicated; Z88.5 Allergy status to narcotic agent; Z79.899 Other long term (current) drug therapy
CPT/HCPCS: 70450; 80053; 81003; 84443; 85025; 93005; 93010; 99285-25

== ENCOUNTER 2024-11-18 14:32 | Emergency (ER) | payer OTHER ==
[~2024-11-18] VITALS: Ht 170.2 cm; Wt 63.5 kg
[2024-11-18 15:25] LABS: Source, Urine Voided
[2024-11-18 15:29] LABS: Bilirubin, Urine Neg (Neg); Glucose Qualitative, Urine Neg (Neg); Ketones, Urine Neg (Neg); Leukocyte Esterase, Urine Neg (Neg); Protein, Urine Neg (Neg); Specific Gravity, Urine 1.010 (1.003-1.022); Urobilinogen, Urine NORM (Normal)
[2024-11-18 15:30] LABS: BASOPHILS ABSOLUTE AUTO 0.08 K/mm3 (0.00-0.23); BASOPHILS PERCENT AUTO 1 % (0-2); EOSINOPHILS ABSOLUTE AUTO 0.16 K/mm3 (0.00-0.68); EOSINOPHILS PERCENT AUTO 1 % (0-6); Hematocrit 41.6 % (33.0-51.0); Hemoglobin 13.8 g/dL (11.5-16.0); IMMATURE GRAN ABSOLUTE AUTO 0.05 K/mm3 (0.00-0.10); IMMATURE GRAN PERCENT AUTO 0 % (0-1); LYMPHOCYTES ABSOLUTE AUTO 2.13 K/mm3 (0.84-5.20); LYMPHOCYTES PERCENT AUTO 13 % (21-46); MONOCYTES ABSOLUTE AUTO 0.75 K/mm3 (0.16-1.47); MONOCYTES PERCENT AUTO 5 % (4-13); Mean Corpuscular HGB Conc 33.2 g/dL (31.5-36.5); Mean Corpuscular Volume 90 fL (80-100); NEUTROPHILS ABSOLUTE AUTO 13.65 K/mm3 (1.96-9.15); NEUTROPHILS PERCENT AUTO 81 % (41-73); NRBC ABSOLUTE 0.00 K/mm3 (0.00-0.02); NRBC Auto 0.0 /100 WBC (0.0-0.2); Platelet Count 258 K/mm3 (150-400); RDW Coefficient Variation 13.2 % (11.7-14.2); RDW Standard Deviation 43.3 fL (35.1-46.3)
[2024-11-18 15:47] LABS: CORONAVIRUS COVID-19 AG Negative (NEGATIVE)
[2024-11-18 15:50] LABS: Alanine Aminotransfer (ALT/SGP 25.0 U/L (12-78); Albumin, Blood 3.9 g/dL (3.4-5.0); Albumin/Globulin Ratio 1.1 (0.8-1.8); Anion Gap 6.0 mmol/L (3-11); Aspartate Aminotrans (AST/SGOT 22.0 U/L (12-37); Bilirubin, Total 0.5 mg/dL (0.1-1.0); Blood Urea Nitrogen 5.0 mg/dL (8-24); CO2, Blood 26.0 mmol/L (21-32); Calcium, Blood 9.4 mg/dL (8.5-10.1); Chloride, Blood 107.0 mmol/L (98-108); Creatinine, Blood 0.87 mg/dL (0.40-1.00); Globulin, Blood 3.7 g/dL (2.2-4.0); Glucose, Blood 101.0 mg/dL (70-99); Potassium, Blood 3.9 mmol/L (3.5-5.5); Sodium, Blood 135.0 mmol/L (136-145); Total Protein, Blood 7.6 g/dL (6.4-8.2)
[2024-11-18 16:16] LABS: Color, Urine Pale Yellow (P-Yellow)
[2024-11-18 16:36] VITALS: BP 135/78
[2024-11-18] MEDS ORDERED: Prednisone20 MG PO (18:38)
[2024-11-18] MEDS ORDERED: AZIT250 PO (18:38)
== END 2024-11-18 18:59 | disposition home or self-care (01) ==
LOC: ER 14:32
PROVIDERS: Emergency Medicine
DX: I80.02 Phlebitis and thrombophlebitis of superficial vessels of left lower extremity (principal); J44.9 Chronic obstructive pulmonary disease, unspecified; E78.00 Pure hypercholesterolemia, unspecified; F17.210 Nicotine dependence, cigarettes, uncomplicated; Z99.81 Dependence on supplemental oxygen; Z88.5 Allergy status to narcotic agent; Z79.899 Other long term (current) drug therapy
CPT/HCPCS: 71046; 80053; 81003; 85025; 87428-QW; 99283-25

== ENCOUNTER 2025-03-19 12:17 | Emergency (ER) | payer OTHER ==
[~2025-03-19] VITALS: Ht 170.2 cm; Wt 62.1 kg
[~2025-03-19 12:17] MED LIST changes: +AZIT250 PO; +Prednisone20 MG PO
[2025-03-19 12:49] LABS: BASOPHILS ABSOLUTE AUTO 0.11 K/mm3 (0.00-0.23); BASOPHILS PERCENT AUTO 1 % (0-2); EOSINOPHILS ABSOLUTE AUTO 0.14 K/mm3 (0.00-0.68); EOSINOPHILS PERCENT AUTO 1 % (0-6); Hematocrit 38.2 % (33.0-51.0); Hemoglobin 12.7 g/dL (11.5-16.0); IMMATURE GRAN ABSOLUTE AUTO 0.05 K/mm3 (0.00-0.10); IMMATURE GRAN PERCENT AUTO 0 % (0-1); LYMPHOCYTES ABSOLUTE AUTO 2.42 K/mm3 (0.84-5.20); LYMPHOCYTES PERCENT AUTO 17 % (21-46); MONOCYTES ABSOLUTE AUTO 0.68 K/mm3 (0.16-1.47); MONOCYTES PERCENT AUTO 5 % (4-13); Mean Corpuscular HGB Conc 33.2 g/dL (31.5-36.5); Mean Corpuscular Volume 89 fL (80-100); NEUTROPHILS ABSOLUTE AUTO 11.25 K/mm3 (1.96-9.15); NEUTROPHILS PERCENT AUTO 77 % (41-73); NRBC ABSOLUTE 0.00 K/mm3 (0.00-0.02); NRBC Auto 0.0 /100 WBC (0.0-0.2); Platelet Count 264 K/mm3 (150-400); RDW Coefficient Variation 12.0 % (11.7-14.2); RDW Standard Deviation 38.9 fL (35.1-46.3)
[2025-03-19] MEDS ORDERED: ATORVASTATIN CA20 MG PO (13:10)
[2025-03-19 13:14] LABS: Alanine Aminotransfer (ALT/SGP 29.0 U/L (12-78); Albumin, Blood 3.9 g/dL (3.4-5.0); Albumin/Globulin Ratio 1.3 (0.8-1.8); Anion Gap 8.0 mmol/L (3-11); Aspartate Aminotrans (AST/SGOT 18.0 U/L (12-37); Bilirubin, Total 0.6 mg/dL (0.1-1.0); Blood Urea Nitrogen 7.0 mg/dL (8-24); CO2, Blood 29.0 mmol/L (21-32); Calcium, Blood 9.3 mg/dL (8.5-10.1); Chloride, Blood 102.0 mmol/L (98-108); Creatinine, Blood 0.94 mg/dL (0.40-1.00); Globulin, Blood 3.1 g/dL (2.2-4.0); Glucose, Blood 153.0 mg/dL (70-99); Potassium, Blood 4.9 mmol/L (3.5-5.5); Sodium, Blood 134.0 mmol/L (136-145); Total Protein, Blood 7.0 g/dL (6.4-8.2)
[2025-03-19] MEDS ORDERED: Aspir 8181 MG PO (13:14)
[2025-03-19 13:29] LABS: Source, Urine Clean Catch
[2025-03-19 13:32] LABS: Bilirubin, Urine Neg (Neg); Glucose Qualitative, Urine Neg (Neg); Ketones, Urine Neg (Neg); Leukocyte Esterase, Urine Neg (Neg); Protein, Urine Neg (Neg); Specific Gravity, Urine 1.010 (1.003-1.022); Urobilinogen, Urine NORM (Normal)
[2025-03-19 13:40] LABS: Color, Urine Pale Yellow (P-Yellow)
[2025-03-19] MEDS ORDERED: DiphenhydrAMINE HCl 50 MG/ML 1ML Vial IV ONE (14:50)
[2025-03-19] MEDS ORDERED: Dexamethasone Sodium Phosphate 4 MG/ML 1ML Vial IV ONE (14:50)
[2025-03-19] MEDS ORDERED: Ketorolac Tromethamine 15mg Vial IV ONE (14:50)
[2025-03-19] MEDS ORDERED: Prochlorperazine Edisylate 10 mg Vial IV ONE (14:50)
[2025-03-19] MEDS ORDERED: FentaNYL Citrate 50 MCG/ML 2 ML Injection IV ONE (14:50)
[2025-03-19 15:15] VITALS: BP 157/77
== END 2025-03-19 16:16 | disposition home or self-care (01) ==
LOC: ER 12:17
PROVIDERS: Student in an Organized Health Care Education/Training Program
DX: H53.9 Unspecified visual disturbance (principal); R53.1 Weakness; E78.00 Pure hypercholesterolemia, unspecified; F17.210 Nicotine dependence, cigarettes, uncomplicated; Z79.899 Other long term (current) drug therapy; Z79.52 Long term (current) use of systemic steroids; Z79.51 Long term (current) use of inhaled steroids; Z88.5 Allergy status to narcotic agent
CPT/HCPCS: 70450; 80053; 81003; 84484; 85025; 93005; 93010; 96374; 96375; 99285-25; J0780; J1100; J1200; J1885; J3010